=== PATIENT | male | born 1995 | race Caucasian/White ===

== ENCOUNTER 2018-09-29 19:05 | Emergency (ER) | payer OTHER ==
--- NOTE | 2018-09-29 19:18 | ER Report ---
History and Physical Time Seen By MD: 19:18 Hx. 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 Patient states that about an hour heparin to arrival, he had a sudden onset of anterior chest pain, patient states this started in the epigastric region, felt like acid reflux, took Tums and Benadryl with no relief. Patient states the pain was so intense that he was rolling around on the ground, decided come in for further evaluation. Upon arrival patient is interacting well, states the pain has begun to resolve. Patient denies injuries, no fevers or chills, no shortness of breath. No rashes. Patient is otherwise healthy. Although he does state that recently he he's seen his primary care provider for diarrhea, they're working on adjusting his diet as he has had a poor diet in the past. REVIEW OF SYSTEMS: Constitutional: No fever, no chills. Eyes: No discharge. ENT: No sore throat. Cardiovascular: As above. Respiratory: No cough, no shortness of breath. Gastrointestinal: No abdominal pain, no vomiting. Genitourinary: No hematuria. Musculoskeletal: No back pain. Skin: No rashes. Neurological: No headache. Allergies: Coded Allergies: No Known Drug Allergies (Unverified , 09/29/18) Home Meds No Active Prescriptions or Reported Meds Past Medical/Surgical History The patient has a past medical and surgical history of chewing tobacco, swallows the tobacco spit, uses marijuana on a daily basis, left wrist fracture, drinks several beers on a daily basis. Reviewed Nurses Notes: Yes Constitutional Vital Sign - Last 24 Hours 09/29/18 09/29/18 09/29/18 09/29/18 19:13 19:15 19:30 19:45 Temp 99.5 Pulse 67 71 58 67 Resp 16 38 18 33 B/P (MAP) 123/61 123/61 (81) 126/78 (94) Pulse Ox 96 94 94 91 O2 Delivery Room Air 09/29/18 09/29/18 20:00 20:15 Pulse 74 68 Resp 16 20 B/P (MAP) 110/76 (87) Pulse Ox 92 91 Physical Exam General Appearance: The patient is alert, has no immediate need for airway protection and no signs of toxicity. Eyes: Pupils equal and round no pallor or injection. ENT, Mouth: Mucous membranes are moist. Respiratory: There are no retractions, lungs are clear to auscultation. Cardiovascular: Regular rate and rhythm, no murmurs, clicks or rubs. Gastrointestinal: Abdomen is soft and non tender, no masses, bowel sounds normal. Neurological: Alert and oriented 4. Moving all extremities. Following all commands. No focal neuro deficits. Skin: Warm and dry, no rashes. Musculoskeletal: Neck is supple non tender. Extremities are nontender, nonswollen and have full range of motion. DIFFERENTIAL DIAGNOSIS: After history and physical exam differential diagnosis was considered for chest pain including but not limited to myocardial ischemia, pericarditis pulmonary embolus, chest wall pain, pleural inflammation and pulmonary infectious causes. Medical Decision Making Data Points Result Diagram: 09/29/182 09/29/182 Laboratory Hematology Test 09/29/18 19:22 Red Blood Count 5.84 M/uL (4.00-5.60) Mean Corpuscular Volume 84.5 fL (80.0-96.0) Mean Corpuscular Hemoglobin 29.2 pg (26.0-33.0) Mean Corpuscular Hemoglobin Concent 34.6 g/dL (32.0-36.0) Red Cell Distribution Width 12.5 % (11.5-14.5) Mean Platelet Volume 8.9 fL (7.2-11.1) Neutrophils (%) (Auto) 61.5 % (39.4-72.5) Lymphocytes (%) (Auto) 28.1 % (17.6-49.6) Monocytes (%) (Auto) 9.0 % (4.1-12.4) Eosinophils (%) (Auto) 0.7 % (0.4-6.7) Basophils (%) (Auto) 0.7 % (0.3-1.4) Nucleated RBC Relative Count (auto) 0.0 /100WBC Neutrophils # (Auto) 5.2 K/uL (2.0-7.4) Lymphocytes # (Auto) 2.4 K/uL (1.3-3.6) Monocytes # (Auto) 0.8 K/uL (0.3-1.0) Eosinophils # (Auto) 0.1 K/uL (0.0-0.5) Basophils # (Auto) 0.1 K/uL (0.0-0.1) Nucleated RBC Absolute Count (auto) 0.00 K/uL Sodium Level 139 mmol/L (137-145) Potassium Level 3.2 mmol/L (3.5-5.0) Chloride Level 106 mmol/L (98-107) Carbon Dioxide Level 19 mmol/L (22-30) Blood Urea Nitrogen 20 mg/dl (9-21) Creatinine 1.10 mg/dl (0.66-1.25) Glomerular Filtration Rate Calc > 60.0 Random Glucose 118 mg/dl (75-110) Calcium Level 10.1 mg/dl (8.4-10.2) Total Bilirubin 0.4 mg/dl (0.2-1.3) Aspartate Amino Transf (AST/SGOT) 39 U/L (0-35) Alanine Aminotransferase (ALT/SGPT) 31 U/L (0-56) Alkaline Phosphatase 87 U/L (0-126) Troponin I < 0.012 ng/ml Total Protein 7.9 g/dl (6.3-8.2) Albumin 4.9 g/dl (3.5-5.0) Chemistry Test 09/29/18 19:22 White Blood Count 8.5 k/uL (4.5-11.0) Red Blood Count 5.84 M/uL (4.00-5.60) Hemoglobin 17.1 g/dL (14.0-18.0) Hematocrit 49.3 % (42.0-52.0) Mean Corpuscular Volume 84.5 fL (80.0-96.0) Mean Corpuscular Hemoglobin 29.2 pg (26.0-33.0) Mean Corpuscular Hemoglobin Concent 34.6 g/dL (32.0-36.0) Red Cell Distribution Width 12.5 % (11.5-14.5) Platelet Count 229 K/uL (150-450) Mean Platelet Volume 8.9 fL (7.2-11.1) Neutrophils (%) (Auto) 61.5 % (39.4-72.5) Lymphocytes (%) (Auto) 28.1 % (17.6-49.6) Monocytes (%) (Auto) 9.0 % (4.1-12.4) Eosinophils (%) (Auto) 0.7 % (0.4-6.7) Basophils (%) (Auto) 0.7 % (0.3-1.4) Nucleated RBC Relative Count (auto) 0.0 /100WBC Neutrophils # (Auto) 5.2 K/uL (2.0-7.4) Lymphocytes # (Auto) 2.4 K/uL (1.3-3.6) Monocytes # (Auto) 0.8 K/uL (0.3-1.0) Eosinophils # (Auto) 0.1 K/uL (0.0-0.5) Basophils # (Auto) 0.1 K/uL (0.0-0.1) Nucleated RBC Absolute Count (auto) 0.00 K/uL Glomerular Filtration Rate Calc > 60.0 Calcium Level 10.1 mg/dl (8.4-10.2) Total Bilirubin 0.4 mg/dl (0.2-1.3) Aspartate Amino Transf (AST/SGOT) 39 U/L (0-35) Alanine Aminotransferase (ALT/SGPT) 31 U/L (0-56) Alkaline Phosphatase 87 U/L (0-126) Troponin I < 0.012 ng/ml Total Protein 7.9 g/dl (6.3-8.2) Albumin 4.9 g/dl (3.5-5.0) EKG/Imaging EKG Interpretation 12 lead EKG: Time of EKG 1933. Rhythm: normal sinus rhythm, ventricular rate 72 bpm. [place]at[place]: normal QRS: normal ST segments: No ST depression or elevation identified. Imaging Location: [facility] Patient: Lauro Rodriguez : 1995 Visit/Account:[id number] Date of Sevice: 09/29/2018 2 VIEWS CHEST INDICATION: Chest pain today. History smoking. COMPARISON: None available FINDINGS: Cardiomediastinal silhouette and pulmonary vessels within normal limits. There is no focal infiltrate or lobar consolidation. There is no pneumothorax or pleural effusion. No nodule. Upper abdomen is unremarkable. No acute bony abnormality. IMPRESSION: 1. No acute cardiopulmonary process. Report Dictated By: Godfrey Love at 09/29/2018 8:07 PM Report E-Signed By: Godfrey Love at 09/29/2018 8:09 PM WSN:[id number] ED Course/Re-evaluation ED Course The patient was admitted to room. A history and physical were obtained. Differential diagnoses were considered. An IV was started. A CBC, CMP and troponin were obtained. Lab studies were unremarkable, negative troponin. Hung valadez was given a GI cocktail with complete relief of his symptoms. Negative two- view chest x-ray. I did review the results with the patient. I did tell the patient I do not feel this is not ACS in nature, I did tell the patient I feel this is acid reflux, he does eat spicy and acidic foods, he also chews tobacco and swallows, drinks alcohol on a daily basis. I did tell him that I came to take famotidine for the next 2 weeks, don't swallow the tobacco juice, avoid alcohol and spicy food, follow-up with his primary care provider for reevaluation. Patient expressed understanding and was discharged home. Decision to Disposition Date: Sep 29, 2018 Decision to Disposition Time: 20:23 Depart Departure Latest Vital Signs Vital Signs Date Time Temp Pulse Resp B/P (MAP) Pulse Ox O2 Delivery O2 Flow Rate FiO2 09/29/18 20:15 68 20 91 09/29/18 20:00 110/76 (87) 09/29/18 19:13 99.5 Room Air Impression: Primary Impression: Acid reflux Condition: Improved Disposition: HOME OR SELF-CARE New Scripts No Active Prescriptions or Reported Meds Patient Instructions: Gastroesophageal Reflux Disease (ED) Additional Instructions: There were no concerning findings on the EKG, chest x-ray or laboratory studies today. Although the symptoms came on abruptly and were very severe, your pain today is likely acid reflux. Things that can induce acid reflux are spicy foods, stress and please avoid swallowing chewing tobacco. Avoid drinking alcohol on a daily basis, this can also cause acid reflux. Take 20 mg of famotidine 1 day for the next 2 weeks. Drink plenty of water. Get plenty of rest. If this is a recurrent problem please follow-up with Dr. Covarrubias or Dr. Barry for an endoscopy, looking for an ulceration of the stomach. Follow-up with your primary care provider as scheduled. Return to the emergency department for any other concerns or worsening symptoms. Problem Qualifiers Primary Impression: Acid reflux Esophagitis presence: esophagitis presence not specified Qualified Codes: K21.9 - Gastro-esophageal reflux disease without esophagitis FARTUN ROACH-VELMA Sep 29, 2018 19:18
[2018-09-29] MEDS ORDERED: LIDOCAINE 2% VISC SLN 15ML UDC PO ONE (19:35)
[2018-09-29] MEDS ORDERED: MAG HYD/AL HYD/SIMETH 30ML UDC PO ONE (19:35)
[2018-09-29] MEDS ORDERED: ATRO/SCOPOL/HYOSCY/PB 5 ML ELX PO ONE (19:35)
[2018-09-29 19:38] LABS: PLATELET COUNT, AUTOMATED 229 K/uL (150-450)
--- NOTE | 2018-09-29 19:51 | EKG ---
FACILITY: [facility] PATIENT NAME: BLADIMIR AG : [id number] MR: [id number] V: [id number] EXAM DATE: ORDERING PHYSICIAN: FARTUN ROACH TECHNOLOGIST: MARCELA Test Reason : CP Blood Pressure : / mmHG Vent. Rate : 072 BPM Atrial Rate : 072 BPM P-R Int : 126 ms QRS Dur : 104 ms QT Int : 428 ms P-R-T Axes : 057 081 050 degrees QTc Int : 468 ms Normal sinus rhythm Normal ECG No previous ECGs available Confirmed by Raleigh Bhakta ([id number] on 09/30/2018 10:37:13 PM Referred By: Confirmed By:Raleigh Temple
[2018-09-29 20:00] VITALS: BP 110/76
--- NOTE | 2018-09-29 20:13 | RADIOLOGY IMAGING REPORT ---
FACILITY: [facility] PATIENT NAME: Lauro Rodriguez : 1995 MR: [id number] V: [id number] EXAM DATE: ORDERING PHYSICIAN: FARTUN ROACH TECHNOLOGIST: [facility] Patient: Lauro Rodriguez : 1995 Visit/Account:[id number] Date of Sevice: 09/29/2018 2 VIEWS CHEST INDICATION: Chest pain today. History smoking. COMPARISON: None available FINDINGS: Cardiomediastinal silhouette and pulmonary vessels within normal limits. There is no focal infiltrate or lobar consolidation. There is no pneumothorax or pleural effusion. No nodule. Upper abdomen is unremarkable. No acute bony abnormality. IMPRESSION: 1. No acute cardiopulmonary process. Report Dictated By: Godfrey Love at 09/29/2018 8:07 PM Report E-Signed By: Godfrey Love at 09/29/2018 8:09 PM WSN:[id number]
== END 2018-09-29 20:34 | disposition home or self-care (01) ==
LOC: ER 19:23
DX: K21.9 Gastro-esophageal reflux disease without esophagitis (principal)
CPT/HCPCS: 71046; 82040; 82247; 82310; 82374; 82435; 82565; 82947; 84075; 84132; 84155; 84295; 84450; 84460; 84484; 84520; 85025; 93005; 99284